=== PATIENT | male | born 1965 | race Caucasian/White ===

== ENCOUNTER 2016-09-28 14:08 | Observation (INO) | payer MEDICARE, OTHER ==
[2016-09-28] MEDS ORDERED: NITROGLYCERIN OINT 1 INCH/GM PACKET TOPICAL STA (14:38)
[2016-09-28] MEDS ORDERED: ASPIRIN 81 MG CHEW PO STA (14:38)
--- NOTE | 2016-09-28 14:40 | ED ---
General Adult HPI - General Chief complaint: Chest Pain Stated complaint: chest pain Time Seen by Provider: 09/28/16 14:20 Source: patient, RN notes reviewed Mode of arrival: wheelchair Limitations: no limitations - History of Present Illness Initial comments: This is a 51-year-old male presents emergency department with past medical history significant for 2-3 pack a day smoking. Patient comes in today complaining of chest pain which has been intermittent all month long. Patient states it comes and goes and is not sure of anything that makes it worse. Patient states that last from a few minutes to an hour. Patient states it makes her short of breath as well as does radiate to his back when it occurs. Patient denies any diaphoresis. Patient denies nausea or vomiting. Patient denies any abdominal pain. Patient denies headache patient denies numbness weakness. Patient states he has had a cough lately but no fever or chills that he knows of. Patient denies any lightheadedness or dizziness. - Related Data Home Medications Medication Instructions Recorded Confirmed No Known Home Medications [No 09/28/16 09/28/16 Known Home Medications] Allergies Allergy/AdvReac Type Severity Reaction Status Date / Time No Known Allergies Allergy Verified 09/28/16 14:55 Review of Systems ROS Statement: Those systems with pertinent positive or pertinent negative responses have been documented in the HPI. ROS Other: All systems not noted in ROS Statement are negative. Past Medical History Past Medical History: Myocardial Infarction (ND) Additional Past Surgical History / Comment(s): leg surgery Past Psychological History: No Psychological Hx Reported Smoking Status: Current every day smoker Past Alcohol Use History: Daily Past Drug Use History: None Reported General Exam - General Exam Comments Initial Comments: GENERAL: Patient is well-developed and well-nourished. Patient is nontoxic and well- hydrated and is in mild distress. ENT: Neck is soft and supple. No significant lymphadenopathy is noted. Oropharynx is clear. Moist mucous membranes. Neck has full range of motion without eliciting any pain. EYES: The sclera were anicteric and conjunctiva were pink and moist. Extraocular movements were intact and pupils were equal round and reactive to light. Eyelids were unremarkable. PULMONARY: Unlabored respirations. Good breath sounds bilaterally. No audible rales rhonchi or wheezing was noted. CARDIOVASCULAR: There is a regular rate and rhythm without any murmurs gallops or rubs. ABDOMEN: Soft and nontender with normal bowel sounds. No palpable organomegaly was noted. There is no palpable pulsatile mass. SKIN: Skin is clear with no lesions or rashes and otherwise unremarkable. NEUROLOGIC: Patient is alert and oriented x3. Cranial nerves II through XII are grossly intact. Motor and sensory are also intact. Normal speech, volume and content. Symmetrical smile. MUSCULOSKELETAL: Normal extremities with adequate strength and full range of motion. No lower extremity swelling or edema. No calf tenderness. LYMPHATICS: No significant lymphadenopathy is noted PSYCHIATRIC: Normal psychiatric evaluation. Normal interpersonal interactions appears functionally intact in deals appropriately with others. No signs of depression. No signs of anxiety. Limitations: no limitations Course Vital Signs 09/28/16 09/28/16 09/28/16 14:19 14:31 14:46 Temperature 98.4 F Pulse Rate 78 88 Pulse Rate [ 76 Bilateral Radial] Respiratory 20 18 Rate Blood Pressure 169/84 169/102 O2 Sat by Pulse 98 98 Oximetry 09/28/16 15:47 Temperature 98.2 F Pulse Rate 77 Pulse Rate [ Bilateral Radial] Respiratory 14 Rate Blood Pressure 203/94 O2 Sat by Pulse 98 Oximetry Medical Decision Making - Medical Decision Making EKG shows a normal sinus rhythm at [address] interval 120 QRS 106 QT interval 42 QTC is 452 per patient's EKG shows no ST segment elevation or depression or T -wave abdomen is noted. Patient's chest x-ray shows a left-sided pleural effusion with possible diaphragmatic hernia. Patient's chest pain came back to the emergency department but then subsided once the Nitropaste and oxygen were applied. Patient's blood pressure was also elevated and I gave the patient labetalol. Because the patient's risk factors is significant smoking history and the fact that the patient's pain subsided after Nitropaste. I place the patient on heparin I spoke with Dr. Varghese I admitted the patient I wrote admitting orders and consult cardiology I continue to have per Nitropaste and aspirin on the floor. - Lab Data Result diagrams: 09/28/16 14:41 09/28/16 14:41 Lab Results 09/28/16 09/28/16 09/28/16 Range/Units 14:41 14:41 14:41 WBC 12.0 H (3.8-10.6) k/uL RBC 4.17 L (4.30-5.90) m/uL Hgb 13.6 (13.0-17.5) gm/dL Hct 39.1 (39.0-53.0) % MCV 93.8 (80.0-100.0) fL MCH 32.7 (25.0-35.0) pg MCHC 34.8 (31.0-37.0) g/dL RDW 13.2 (11.5-15.5) % Plt Count 125 L (150-450) k/uL Neutrophils % 80 % Lymphocytes % 14 % Monocytes % 4 % Eosinophils % 1 % Basophils % 0 % Neutrophils # 9.6 H (1.3-7.7) k/uL Lymphocytes # 1.7 (1.0-4.8) k/uL Monocytes # 0.5 (0-1.0) k/uL Eosinophils # 0.1 (0-0.7) k/uL Basophils # 0.1 (0-0.2) k/uL PT (9.0-12.0) sec INR (<1.1) APTT (22.0-30.0) sec Sodium 140 (137-145) mmol/L Potassium 4.0 (3.5-5.1) mmol/L Chloride 106 (98-107) mmol/L Carbon Dioxide 24 (22-30) mmol/L Anion Gap 10 mmol/L BUN 15 (9-20) mg/dL Creatinine 0.77 (0.66-1.25) mg/dL Est GFR (MDRD) Af Amer >60 (>60 ml/min/1.73 sqM) Est GFR (MDRD) Non-Af >60 (>60 ml/min/1.73 sqM) Glucose 103 H (74-99) mg/dL Calcium 9.1 (8.4-10.2) mg/dL Magnesium 1.9 (1.6-2.3) mg/dL Total Bilirubin 0.6 (0.2-1.3) mg/dL AST 19 (17-59) U/L ALT 28 (21-72) U/L Alkaline Phosphatase 59 (38-126) U/L Total Creatine Kinase 102 (55-170) U/L CK-MB (CK-2) 2.0 (0.0-2.4) ng/mL CK-MB (CK-2) Rel Index 2.0 Troponin I <0.012 (0.000-0.034) ng/mL Total Protein 7.1 (6.3-8.2) g/dL Albumin 4.1 (3.5-5.0) g/dL 09/28/16 Range/Units 14:41 WBC (3.8-10.6) k/uL RBC (4.30-5.90) m/uL Hgb (13.0-17.5) gm/dL Hct (39.0-53.0) % MCV (80.0-100.0) fL MCH (25.0-35.0) pg MCHC (31.0-37.0) g/dL RDW (11.5-15.5) % Plt Count (150-450) k/uL Neutrophils % % Lymphocytes % % Monocytes % % Eosinophils % % Basophils % % Neutrophils # (1.3-7.7) k/uL Lymphocytes # (1.0-4.8) k/uL Monocytes # (0-1.0) k/uL Eosinophils # (0-0.7) k/uL Basophils # (0-0.2) k/uL PT 11.0 (9.0-12.0) sec INR 1.1 (<1.1) APTT 24.5 (22.0-30.0) sec Sodium (137-145) mmol/L Potassium (3.5-5.1) mmol/L Chloride (98-107) mmol/L Carbon Dioxide (22-30) mmol/L Anion Gap mmol/L BUN (9-20) mg/dL Creatinine (0.66-1.25) mg/dL Est GFR (MDRD) Af Amer (>60 ml/min/1.73 sqM) Est GFR (MDRD) Non-Af (>60 ml/min/1.73 sqM) Glucose (74-99) mg/dL Calcium (8.4-10.2) mg/dL Magnesium (1.6-2.3) mg/dL Total Bilirubin (0.2-1.3) mg/dL AST (17-59) U/L ALT (21-72) U/L Alkaline Phosphatase (38-126) U/L Total Creatine Kinase (55-170) U/L CK-MB (CK-2) (0.0-2.4) ng/mL CK-MB (CK-2) Rel Index Troponin I (0.000-0.034) ng/mL Total Protein (6.3-8.2) g/dL Albumin (3.5-5.0) g/dL Critical Care Time Critical Care Time: Yes Total Critical Care Time: 35 Disposition Clinical Impression: Unstable angina pectoris Disposition: ADMITTED IP TO THIS HOSP Referrals: None,Stated [Primary Care Provider] - 1-2 days Time of Disposition: 15:48
[2016-09-28 14:56] LABS: Basophils # (A) 0.1 k/uL (0-0.2); Basophils % (A) 0 %; CH 33.2; CHCM 35.5; Eosinophils # (A) 0.1 k/uL (0-0.7); Eosinophils % (A) 1 %; HCT 39.1 % (39.0-53.0); HDW 2.54; HGB 13.6 gm/dL (13.0-17.5); Luc % (Auto) 1; Lymphocytes # (A) 1.7 k/uL (1.0-4.8); Lymphocytes % (A) 14 %; MCH 32.7 pg (25.0-35.0); MCHC 34.8 g/dL (31.0-37.0); MCV 93.8 fL (80.0-100.0); Mean Platelet Volume 7.7; Monocytes # (A) 0.5 k/uL (0-1.0); Monocytes % (A) 4 %; Neutrophils # (A) 9.6 k/uL (1.3-7.7); Neutrophils % (A) 80 %; RBC 4.17 m/uL (4.30-5.90); RDW 13.2 % (11.5-15.5); WBC (Perox) 11.56
[2016-09-28 15:04] LABS: Glucose 103 mg/dL (74-99); INR 1.1 (<1.1); Partial Thromboplastin Time 24.5 sec (22.0-30.0); Total Protein 7.1 g/dL (6.3-8.2)
[2016-09-28 15:05] LABS: ALT 28 U/L (21-72); AST 19 U/L (17-59); Alkaline Phosphatase 59 U/L (38-126); Anion Gap 10 mmol/L; Blood Urea Nitrogen 15 mg/dL (9-20); Calcium 9.1 mg/dL (8.4-10.2); Carbon Dioxide 24 mmol/L (22-30); Chloride 106 mmol/L (98-107); Magnesium 1.9 mg/dL (1.6-2.3); Non-African American GFR(MDRD) >60 (>60 ml/min/1.73 sqM); Sodium 140 mmol/L (137-145); Total Bilirubin 0.6 mg/dL (0.2-1.3)
--- NOTE | 2016-09-28 15:23 | XR ---
EXAMINATION TYPE: XR chest 2V DATE OF EXAM: 09/28/2016 3:03 PM COMPARISON: 03/21/2012 HISTORY: 51-year-old male with chest pain TECHNIQUE: PA and lateral views FINDINGS: Heart is normal size. Aorta within normal limits. Mild interstitial prominence is noted. There is tenisha e bowel gas lucency at the left base with suggestion of small pleural effusion. Some of the bowel gas lucency appears to project above the shadow of the hemidiaphragm possibly due to focal eventration. Some bullous changes seen within the right apex. IMPRESSION: 1. Suggestion of a small left pleural effusion with adjacent atelectasis and/or consolidation. 2. There is also some bowel gas projecting at the left base that may be above the left hemidiaphragm possibly due to diaphragmatic eventration or a diaphragmatic hernia possibly through an old posttraum atic defect. Further imaging evaluation as clinically indicated. 3. Some bullous or old cavitary changes at the right apex.
[2016-09-28 15:25] LABS: Creatine Kinase 102 U/L (55-170)
[2016-09-28 15:37] LABS: Troponin I <0.012 ng/mL (0.000-0.034)
[2016-09-28] MEDS ORDERED: HEPARIN SODIUM,PORCINE 5,000 UNIT/ML 1 ML VIAL IV ONE (15:46)
[2016-09-28] MEDS ORDERED: LABETALOL SYRINGE 5 MG/ML IVP STA (15:47)
[2016-09-28] MEDS ORDERED: NITROGLYCERIN SL TABS 0.4 MG TAB SUBLINGUAL PRN (15:51)
[2016-09-28] MEDS ORDERED: HEPARIN SODIUM,PORCINE/D5W PMX 25,000 UNIT in DEXTROSE/WATER 1 500ML.BAG IV SCH (16:00)
[2016-09-28] MEDS ORDERED: SODIUM CHLORIDE 0.9% 1,000 ML IV STA (16:30)
[2016-09-28] MEDS: NITROGLYCERIN OINT 1 INCH/GM PACKET TOPICAL SCH ×2 (19:51→23:39)
[2016-09-28] MEDS ORDERED: MORPHINE SULFATE 2 MG/ML SYRINGE IVP PRN (20:32)
[2016-09-28] MEDS ORDERED: ONDANSETRON 4 MG/2 ML VIAL IVP PRN (20:32)
[2016-09-28] MEDS ORDERED: LORazepam 2 MG/ML SYRINGE IV PRN ×3 (20:33)
[2016-09-28 22:16] LABS: Creatine Kinase 84 U/L (55-170)
[2016-09-28 22:29] LABS: Creatine Kinase MB 1.9 ng/mL (0.0-2.4); Troponin I <0.012 ng/mL (0.000-0.034)
[2016-09-29 03:37] LABS: Creatine Kinase 71 U/L (55-170)
[2016-09-29 03:51] LABS: Creatine Kinase MB 1.5 ng/mL (0.0-2.4); Troponin I <0.012 ng/mL (0.000-0.034)
[2016-09-29 06:08] LABS: Cholesterol 174 mg/dL (<200); HDL Cholesterol 57 mg/dL (40-60); Triglycerides 279 mg/dL (<150)
[2016-09-29] MEDS: NITROGLYCERIN OINT 1 INCH/GM PACKET TOPICAL SCH (06:14)
--- NOTE | 2016-09-29 08:43 | CONS ---
DATE OF CONSULTATION: Mr. Guerrero is a 51-year-old male with no prior documented history of coronary artery disease, history of chronic tobacco use, who presented to the emergency room with symptoms of chest discomfort on and off, not clearly exertional in pattern. He also was told that his blood pressure high and that is why he came into the hospital. According to him, he is reasonably active physically. He has dyspnea on exertion and cough related to his smoking. He denies any dizziness or palpitation. No syncope. No clear PND, orthopnea. No peripheral edema. His coronary risk factors are remarkable the smoking and the recently diagnosed hypertension. His medications at home: None. REVIEW OF SYSTEMS: RESPIRATORY SYSTEM: He had dyspnea on exertion. No recent wheezing. He has a cough. GI SYSTEM: No recent GI bleeding. No peptic ulcer disease. SYSTEM: No dysuria or hematuria. NERVOUS SYSTEM: No stroke or seizure. PHYSICAL EXAMINATION: He is a 51-year-old male, alert, oriented, in no apparent distress. Blood pressure running in the 170 to 200, heart rate in the 60s. HEAD: Normocephalic. EYES: Sclerae nonicteric. NECK: Good upstroke. No bruit. No jugular venous distention. LUNGS: Clear to auscultation. HEART: Regular rate and rhythm. S1, S2, no S3, no S4, no murmur or rub. ABDOMEN: Soft, nontender, positive bowel sounds. No organomegaly. EXTREMITIES: No edema. Intact distal pulses. Lab data revealed troponin less than 0.012 for 3 samples. Cholesterol 174, LDL of 61, BUN and creatinine 15 and 0.77. Hemoglobin of 13.6. EKG reveals sinus mechanism, normal axis and intervals. Normal echocardiogram. Chest x-ray revealed possible diaphragmatic eventration. IMPRESSION: 1. Chest discomfort, atypical for ischemic heart disease. No evidence of myocardial infarction. 2. Hypertension, not treated. 3. Chronic tobacco use. RECOMMENDATION: From the cardiac standpoint, I will stop the heparin as well as the nitrate. I will start him on LEOLA inhibitor with diuretic to improve his blood pressure. I would recommend to proceed with a stress echocardiogram to further assess his status and guide the treatment. Depending on his progress, further recommendation will be made. Thank you for this consult. Will follow with you.
[2016-09-29] MEDS ORDERED: LISINOPRIL-HCTZ 10-12.5 MG 1 EACH TAB PO SCH (09:00)
[2016-09-29] MEDS ORDERED: ASPIRIN 325 MG TAB PO SCH (09:00)
[2016-09-29 09:17] VITALS: RESP 18
--- NOTE | 2016-09-29 12:12 | ECHOF ---
Referral Reason: MEASUREMENTS -------- HEIGHT: 177.8 cm WEIGHT: 83.5 kg BP: 129/85 RVIDd: 3.3 cm (< 3.3) IVSd: 1.2 cm (0.6 - 1.1) LVIDd: 4.4 cm (3.9 - 5.3) LVPWd: 1.1 cm (0.6 - 1.1) IVSs: 1.4 cm LVIDs: 3.1 cm LVPWs: 1.4 cm LA Diam: 3.4 cm (2.7 - 3.8) LAESV Index (A-L): 22.61 ml/m Ao Diam: 3.3 cm (2.0 - 3.7) MV EXCURSION: 20.477 mm (> 18.000) MV EF SLOPE: 118 mm/s (70 - 150) EPSS: 1.0 cm MV E Cyrus: 0.84 m/s MV DecT: 179 ms MV A Cyrus: 0.88 m/s MV E/A Ratio: 0.96 RAP: 5.00 mmHg RVSP: 36.80 mmHg FINDINGS -------- Sinus rhythm. This was a technically adequate study. The left ventricular size is normal. There is borderline concentric left ventricular hypertrophy. Overall left ventricular systolic function is low-normal with, an EF between 50 - 55 %. The right ventricle is mildly enlarged. Normal LA size by volume 22+/-6 ml/m2. The right atrium is normal in size. 1.5mg of Definity was utilized for enhancement of images The aortic valve was not well visualized. Mild mitral annular calcification present. Mild tricuspid regurgitation present. There is mild pulmonary hypertension. The right ventricular systolic pressure, as measured by Doppler, is 36.80mmHg. The pulmonic valve is normal. There is no pulmonic regurgitation present. The aortic root size is normal. The inferior vena cava is mildly dilated. There is no pericardial effusion. CONCLUSIONS -------- 1. Sinus rhythm. 2. The aortic valve was not well visualized. 3. Mild mitral annular calcification present. 4. Mild tricuspid regurgitation present. 5. There is mild pulmonary hypertension. 6. The right ventricular systolic pressure, as measured by Doppler, is 36.80mmHg. 7. The pulmonic valve is normal. 8. The aortic root size is normal. 9. The inferior vena cava is mildly dilated. 10. There is no pericardial effusion. 11. This was a technically adequate study. 12. The left ventricular size is normal. 13. There is borderline concentric left ventricular hypertrophy. 14. Overall left ventricular systolic function is low-normal with, an EF between 50 - 55 %. 15. The right ventricle is mildly enlarged. 16. Normal LA size by volume 22+/-6 ml/m2. 17. The right atrium is normal in size. 18. 1.5mg of Definity was utilized for enhancement of images NETWORK ENGINEER: Giovanna Harris RDCS
[2016-09-29 12:25] VITALS: BP 145/95; PULSE 83; TEMP 97.6
--- NOTE | 2016-09-29 12:44 | ECHOS ---
DATE OF SERVICE: 09/29/2016 AGE: 51Y SEX: M HT: 70" WT: 184 lbs. Protocol Luke: X Others: Stress Echo Stage: II Dur. of Exercise: 6 minutes *Heart Rate Blood Pressure *Rest: 89 Rest: 129/85 * *Max. Achieved: 142 Maximum BP: 204/77 85% PMHR: 145 100% PMHR: 171 *METS: 6.5 INDICATIONS: Unstable angina. MEDICATIONS: Patient was exercised for a total period of 6 minutes. A peak heart rate of 142 was achieved. Maximum blood pressure of 204/77 mmHg was noted. Resting EKG shows normal sinus rhythm with normal WI interval and QRS duration and normal ST-T waves. No ST segment depression suggestive of ischemia was noted. The baseline echocardiographic images reveals normal left ventricular chamber size with normal left ventricular systolic function. In the immediate postexercise period, normal increase in the wall thickness and contractility is noted. FINAL IMPRESSION: This stress echocardiographic study is negative for stress-induced ischemia. EKG portion of the stress test is not suggestive of ischemia. Patient's exercise tolerance is normal.
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
== END 2016-09-29 15:13 | disposition home or self-care (01) ==
LOC: EEVIPCON 14:08 → EC 14:08 → 3OBS 16:41
PROVIDERS: ADMIT Internal Medicine; ATTEND Internal Medicine
DX: R07.89 Other chest pain (principal); I10 Essential (primary) hypertension; M54.9 Dorsalgia, unspecified; M89.29 Other disorders of bone development and growth, multiple sites; F17.210 Nicotine dependence, cigarettes, uncomplicated; I25.2 Old myocardial infarction; J45.909 Unspecified asthma, uncomplicated; J90 Pleural effusion, not elsewhere classified; Z79.899 Other long term (current) drug therapy
CPT/HCPCS: 36415; 93005; 93017; 93306; 80061; 80053; 82550 ×2; 82553 ×2; 83735; 84484 ×2; 85025; 85610; 85730 ×2; 71020; 99291; 96365; 96375; 96376; G0378 ×2; C8928; J2060; J1644 ×2; J2270; Q9957; 93350; 96366